=== PATIENT | male | born 2005 | race Caucasian/White ===

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

== ENCOUNTER 2024-03-10 22:31 | Emergency (ER) | payer SELFPAY ==
--- NOTE | 2024-03-10 22:50 | ED.GENADUL_ITS ---
Discharge Plan Disposition Patient Disposition: Home Condition: Good Discharge Details Clinical Impression: Viral respiratory illness ED Provider: Sarah Lewis Home Meds and New Rx's Prescriptions: Continued trazodone 50 mg tablet 50 mg PO DAILY lamotrigine 100 mg Tablet 50 mg PO BID dexmethylphenidate [Focalin XR] 15 mg Capsule,Er Biphasic 50-50 15 mg PO QAM Discharge Instructions Additional Instructions: Your symptoms today are most consistent with a viral illness. Please stay well hydrated, drinking plenty of fluids throughout the day. You may use ibuprofen 600 mg every 8 hours and tylenol 650 mg every 8 hours as needed for fever /chills or body aches. Get plenty of rest. Practice good handwashing and wear a mask in public if you are coughing to avoid spreading illness to others. Return to emergency care if you develop difficulty breathing, chest pains, worsening of cough or fever after initial improvement, or if you are very worried and need to be rechecked again immediately. HPI General Date/Time Provider Initiated Documentation: 03/10/24 22:32 . HPI Narrative: Asim is a 18year old male who presents to the emergency department today for tom luation of fever with viral symptoms. He reports symptoms started 3 or 4 days ago with headache, cough, congestion, sore throat. Today developed headache and fatigue. Admits to multiple ill contacts, son today was sick and diagnosed with flu. Reports fever up to 103 temporal. Denies chest pain, shortness of breath, nausea, vomiting other than posttussive emesis x 1, abdominal pain, change in b owel or bladder function. Says he occasionally gets chest discomfort that resolves spontaneously, no recent changes or episodes of this associated with recent illness. Past medical history is significant for ADHD. He admits to smoking 1 pack/day cigarettes plus marijuana. Denies drug use. No history of asthma, heart disease, immunocompromise. Denies family history of sudden cardiac or connective tissue disorders. Does not have PCP. Physical exam reassuring. Asim is alert and oriented, no acute distress. Easy work of breathing, occasional dry cough during exam. Easy work of breathing, lung sounds clear bilaterally. Normal heart sounds. MMM. Normal oropharynx, no erythema, exudate, or tonsillar hypertrophy. TMs pearly jones, translucent. No submandibular or cervical lymphadenopathy. History and presentation c/w viral illness. No red flag concerning for pneumonia or other bacterial etiology. Pt does not meet SIRS criteria- he is currently afebrile (did not take any meds at home); no tachycardia, tachypnea, or hypoxia. I independently interpreted the following tests: COVID and flu- FLU A Positive. While in the emergency department, Asim received tylenol for headache. As patient is outside window of treatment with Tamiflu for flu A and has no significant comorbidities, recommend symptomatic management at home Reviewed discharge instructions with patient, including symptomatic management and red flags indicating need for return to emergency care Related Data Home Medications ?Medication ?Instructions ?Recorded ?Confirmed dexmethylphenidate 15 mg 15 mg PO QAM 01/12/18 01/12/18 capsule,extended release -29 (Focalin XR) lamotrigine 100 mg tablet 50 mg PO BID 01/12/18 02/15/18 trazodone 50 mg tablet 50 mg PO DAILY 02/15/18 02/15/18 Allergies Allergy/AdvReac Type Severity Reaction Status Date / Time No Known Allergies Allergy Unverified 02/15/18 14:25 General KIRAN: 5 Review of Systems Narrative: see HPI Exam Const General: cooperative, comfortable, no acute distress and well developed Nutritional Appearance: average body habitus Orientation: alert and oriented x3 Neck Neck: normal visual inspection, full ROM and no lymphadenopathy Chest Chest: normal palpation of entire chest wall, no crepitus and no tenderness Resp Effort & Inspection: normal respiratory effort and able to speak in complete sentences Auscultation: clear to auscultation bilaterally Cardio Jugular venous pressure: no JVD Rate: regular rate Rhythm: regular rhythm Skin General skin exam: no rashes or lesions noted Neuro General: patient alert, patient oriented x3, gait normal, tone normal, moves all extremities and no meningeal signs Cognition: normal cognition Speech: speech normal Medical Decision Making Quality:SDOH Health Related Social Needs: No Data to Display PFSH All Active Problems (Updated 03/10/24 @ 22:45 by Sarah Umana) Viral respiratory illness (Acute) Fracture of fifth metacarpal bone of right hand (Acute) Oppositional defiant disorder (Acute 02/03/12) BMI (body mass index), pediatric, 5% to less than 85% for age (Acute 06/22/16) Attention deficit hyperactivity disorder, combined type (Acute 11/14/12) Surgical History ORAL SURGERY Appendectomy Family History GRANDPARENT Substance abuse ALCOHOL Diabetes Essential hypertension Mental disorder DEPRESSION/ANXIETY Social History Smoking/Tobacco Use Status: Current every day Tobacco Type: cigarettes Smoking risk assessment performed?: Yes Alcohol Intake: current Alcohol Intake frequency: holidays/special occasions only Alcohol type: beer Drug use: Never Substance use type: marijuana Do you feel safe in your relationship?: Yes
[2024-03-10 22:54] VITALS: BP 136/67; PULSE 87; RESP 16; TEMP 37.1; O2SAT 99
[2024-03-10] MEDS: Acetaminophen 325 MG TAB 650 MG PO (23:07)
== END 2024-03-10 23:23 | disposition home or self-care (01) ==
LOC: ER 23:32
PROVIDERS: Emergency Provider Nurse Practitioner Family
DX: R50.9 Fever, unspecified (principal)
CPT/HCPCS: 99283

== ENCOUNTER 2024-05-04 21:28 | Emergency (ER) | payer SELFPAY ==
[2024-05-04 21:31] VITALS: BP 146/85; PULSE 76; RESP 20; TEMP 36.6; O2SAT 100
--- NOTE | 2024-05-04 21:36 | DI.RAD_ITS ---
Exam(s) XR HAND LT COMPLETE EXAM: XR HAND LT COMPLETE CLINICAL HISTORY: L hand pain. TECHNIQUE: 2D digital imaging was performed. Three views. COMPARISON: CR XR hand RT complete from 02/15/2018 FINDINGS: BONES: No acute fracture is present. No bony destructive lesion is seen. JOINTS: No dislocation present. SOFT TISSUE: Posterior swelling. No foreign body. IMPRESSION: Soft tissue swelling. DATA REPOSITORY: RADIATION DOSE DELIVERED:
--- NOTE | 2024-05-04 21:55 | W.ED.GENAD ---
Discharge Plan Disposition Patient Disposition: Home Condition: Good Discharge Details Clinical Impression: Contusion of hand, left Primary Care Provider: [facility] ED Provider: Vern Do and New Rx's Prescriptions: No Action trazodone 50 mg tablet 50 mg PO DAILY lamotrigine 100 mg Tablet 50 mg PO BID dexmethylphenidate [Focalin XR] 15 mg Capsule,Er Biphasic 50-50 15 mg PO QAM Discharge Instructions Instructions: Minor Contusion ED Additional Instructions: You were seen for left hand pain after punching objects out of anger. X-rays are negative for fracture. You should use ice on and off over the weekend, keep your hand elevated and take ibuprofen or acetaminophen as needed. Follow up with PCP as needed. Return to ED for worsening pain, swelling, other concerns. HPI General Mode of arrival: ambulatory. Date/Time Provider Initiated Documentation: 05/04/24 21:35. Limitations to Documentation: no limitations. Information obtained by: patient and RN notes reviewed. HPI Narrative: Patient presents to the ED with left hand pain. Patient was angry and punched a tree and a guard rail. He is right-hand dominant. He has left hand pain and swelling. Denies injury elsewhere. Related Data Home Medications ?Medication ?Instructions ?Recorded ?Confirmed dexmethylphenidate 15 mg 15 mg PO QAM 01/12/18 05/04/24 capsule,extended release [id number] (Focalin XR) lamotrigine 100 mg tablet 50 mg PO BID 01/12/18 05/04/24 trazodone 50 mg tablet 50 mg PO DAILY 02/15/18 05/04/24 Allergies Allergy/AdvReac Type Severity Reaction Status Date / Time No Known Allergies Allergy Verified 05/04/24 21:35 General Stated Complaint: Orthopedic KIRAN: 4 Exam Narrative Exam Narrative: Const: WDWN male in NAD. VS per triage. HEENT: NC/AT. Normal facial exam. Neck: Supple. Trachea midline. Lungs: Normal respiratory effort. Neuro: A+O x 3. Normal speech, mentation. Ext: Left hand with some swelling and bruising over the 3rd metacarpal head. Good ROM, sensation, cap refill. Course Vital Signs Vital signs: Vital Signs Temperature 97.8 F 05/04/24 21:31 Pulse 76 05/04/24 21:31 Respiratory Rate 20 05/04/24 21:31 Blood Pressure 146/85 H 03/21/25 21:31 Pulse Oximetry 100 05/04/24 21:31 Temperature 97.8 F 05/04/24 21:31 Temperature Source Temporal Artery Scan 05/04/24 21:31 Pulse 76 05/04/24 21:31 Respiratory Rate 20 05/04/24 21:31 Blood Pressure 146/85 H 05/04/24 21:31 Blood Pressure Position Sitting 05/04/24 21:31 Pulse Oximetry 100 05/04/24 21:31 Oxygen Delivery Method Room Air 05/04/24 21:31 Oxygen Flow Rate 0 05/04/24 21:31 Pain Level 6 05/04/24 21:40 Medical Decision Making Patient presenting to the ED with left hand pain status post punching objects. Some pain and swelling present but good ROM. X-ray of left hand obtained and negative for acute fracture/dislocation per my read. Patient to use ice on and off, elevate hand and take ibuprofen as need. Follow up with PCP as needed. Return precautions provided. Imaging Data Radiologic Study: Attestation: I personally reviewed and interpreted this imaging study as follows: Imaging: X-Ray My impression: see MDM [facility] All Active Problems Contusion of hand, left (Acute) Medical History Attention deficit hyperactivity disorder, combined type (11/14/12) Oppositional defiant disorder (02/03/12) Surgical History ORAL SURGERY Appendectomy Family History GRANDPARENT Substance abuse ALCOHOL Diabetes Essential hypertension Mental disorder DEPRESSION/ANXIETY Social History Smoking/Tobacco Use Status: Current every day Tobacco Type: cigarettes Smoking risk assessment performed?: Yes Alcohol Intake: current Alcohol Intake frequency: holidays/special occasions only Alcohol type: beer Drug use: Never Substance use type: marijuana Do you feel safe in your relationship?: Yes PAWSS Have you Been Recently Intoxicated or Drunk Within the Last 30 days?: Yes Have you Ever Experienced Previous Episodes of Alcohol Withdrawal?: No Have you ever Experienced Withdrawal Seizures?: No Have you ever Experienced Delirium Tremens(DT)s?: No Have you ever undergone Alcohol Rehabilitation Treatment (i.e, inpt ot outpatient treatment programs)?: No Have you ever Experienced Blackouts?: No Have you ever Combined Alcohol with other Downers within the last 90 days?: No Have you ever Combined Alcohol with any other Substance of Abuse during the last 90 days?: No Positive Blood Alcohol level on Presentation? [PCS.BAL]: No Evidence of Increased Autonomic Activity (i.e. HR>120, tremor, sweating, agitation, nausea)?: No Result: 1
--- NOTE | 2024-05-04 22:48 | DI.VRAD_ITS ---
PROCEDURE INFORMATION: Exam: XR Left Hand Exam date and time: 05/04/2024 21:46 Age: 19 years old Clinical indication: Pain; Hand; Left TECHNIQUE: Imaging protocol: Radiologic exam of the left hand. Views: 3 or more views. COMPARISON: No relevant prior studies available. FINDINGS: Bones/joints: No acute fracture or subluxation. Soft tissues: Soft tissue swelling dorsally. IMPRESSION: No acute bony pathology. Dictated and Authenticated by: Dhara Lux MD. Orderin Barbara Cantrell MD
== END 2024-05-04 22:08 | disposition home or self-care (01) ==
PROVIDERS: Emergency Provider Emergency Medicine
DX: S60.221A Contusion of right hand, initial encounter (principal); F17.210 Nicotine dependence, cigarettes, uncomplicated; W22.09XA Striking against other stationary object, initial encounter; Y93.89 Activity, other specified
CPT/HCPCS: 99283; 73130

== ENCOUNTER 2024-05-30 20:09 | Emergency (ER) | payer SELFPAY ==
[2024-05-30 20:13] VITALS: BP 130/79; PULSE 81; RESP 16; TEMP 36.6; O2SAT 99
[2024-05-30 20:17] VITALS: RESP 16
--- NOTE | 2024-05-30 20:20 | ED.GENADUL_ITS ---
Discharge Plan Disposition Patient Disposition: Home Condition: Stable Discharge Details Clinical Impression: Palpitations Primary Care Provider: Guillermina,Local ED Provider: Óscar Jimenez Home Meds and New Rx's Prescriptions: No Action No Known Home Meds Discharge Instructions Instructions: Palpitations ED Additional Instructions: You were seen in the emergency department for some on new sensations after smoking weed, you state the person you shared this marijuana with may have laced it with something else, we did perform a urine drug test you can check results of this tomorrow if you think there was another substance in there perhaps it is 1 that we can test for here at this hospital. You have been having palpitations for quite some time, this may be due to anxiety, this may be a reaction to marijuana, you had some vomiting which is also an intermittent normal reaction be seen in the general population that engages in marijuana use. Your EKG shows no signs of any heart problems please follow-up with your primary care provider for in-depth recommendations on palpitations, please return to the emergency department for any chest pain especially with exertion, shortness of breath, feeling like you are going to pass out or any other emergent concerns. Discharge Data Discharge Date/Time-TO BE ENTERED AT DEPARTURE: 05/30/24 21:21 HPI General Date/Time Provider Initiated Documentation: 05/30/24 20:13 . HPI Narrative: 19 year-old male presents to ED today by POV/ambulating with a chief complaint of smoked marijuana this evening, and his mouth went numb briefly and he vomited, had some mild chest discomfort and sweats with coughing. Quality described as just felt weird, no radiation to continued chest pain, near syncope, persistent vomiting, shortness of breath. Severity is described as moderate. Palliating factors include nothing specific attempted. Provoking factors include nothing specific. Patient not anticoagulated. Related Data Home Medications ?Medication ?Instructions ?Recorded ?Confirmed Unknown [No Known Home Meds] 05/30/24 05/30/24 Allergies Allergy/AdvReac Type Severity Reaction Status Date / Time No Known Allergies Allergy Verified 05/30/24 20:22 General Stated Complaint: GenMedical KIRAN: 4 Review of Systems All systems reviewed & are unremarkable except as noted in HPI and below Exam Narrative Exam Narrative: GENERAL APPEARANCE: Well-nourished, non-toxic, awake and alert, atraumatic, no acute distress. SKIN: Warm, pink, dry, intact, without rashes/lesions/ulcerations. HEAD: Normocephalic, atraumatic, normal hair distribution for gender/age. EYES: Normal conjunctiva, no exudates on lids/lashes. ENT: Nares patent, no circumoral cyanosis, no facial swelling NECK: Supple, trachea midline, painless cervical ROM. LUNGS/CHEST: Lungs CTA bilaterally, non-labored respirations, normal A/P diameter, symmetrical expansion, no chest wall deformity HEART (CV/PV): Regular rate and rhythm without murmur, no peripheral edema, no JVD. ABDOMEN: Soft, non-distended, no guarding. MSK: Normal ROM, no swelling/deformity to bilateral UEs or LEs, moving all extremities without weakness, no cyanosis, spine midline without tenderness, normal curvature. NEURO: Mental Status AAOx4 - alert to person, place, time, events No facial droop, no forehead involvement. Motor: No focal weakness - strength 5/5 in bilateral UEs and LEs, proximal and distal, symmetric. Sensory: sensation intact to light touch globally. Gait normal: patient ambulated without ataxia into ED room. PSYCH: euthymic, cooperative, pleasant, appropriate speech Course Vital Signs Vital signs: Vital Signs Temperature 36.6 C 05/30/24 20:13 Pulse 81 05/30/24 20:13 Respiratory Rate 16 05/30/24 20:13 Blood Pressure 130/79 05/30/24 20:13 Pulse Oximetry 99 05/30/24 20:13 Temperature 36.6 C 05/30/24 20:13 Temperature Source Oral 05/30/24 20:13 Pulse 81 05/30/24 20:13 Respiratory Rate 16 05/30/24 20:13 Blood Pressure 130/79 05/30/24 20:13 Pulse Oximetry 99 05/30/24 20:13 Oxygen Delivery Method Room Air 05/30/24 20:13 Oxygen Flow Rate 0 05/30/24 20:13 Pain Level 3 05/30/24 20:13 Comment chest 05/30/24 20:13 Medical Decision Making This dictation utilizes [id number] dictation software and may contain unedited grammatical errors. 19 year-old male presents to ED today by POV/ambulating with a chief complaint of smoked marijuana this evening, and his mouth went numb briefly and he vomited, had some mild chest discomfort and sweats with coughing. Quality described as just felt weird, no radiation to continued chest pain, near syncope, persistent vomiting, shortness of breath. Severity is described as moderate. Palliating factors include nothing specific attempted. Provoking factors include nothing specific. Patients' medical history: noncontributory. Family and social history: daily marijuana use. Pertinent exam findings / vital signs include benign cardiopulmonary exam, benign abdomen, stable vitals. Differential / pathologies of concern include vasovagal reaction, ingestion of smoke into stomach, side effect of psychotropic drug. Diagnostic studies of: -EKG, UDS. UDS pos for THC -EKG shows NSR 75bpm, no ischemic changes, no T wave abn, normal intervals Interventions of: -None. ED Course/Assessment/Plan: 19-year-old male had a brief coughing fit with vomiting and sweats and palpitations after marijuana use, he wondered if it was laced with something else, UDS shows only positive for THC, performed EKG which shows normal sinus rhythm counseled the patient that he is likely having to stay bad reaction to marijuana, question cannabis hyperemesis, counseled to go home and perform normal p.o. intake, advised to stop marijuana use should he continue to have these reactions to the drug. Findings not consistent with coronary artery disease, loss of consciousness, persistent vomiting, ingestion of other illicit substance. Disposition of palpitations. Patient verbalized understanding of the plan and return to ED criteria and engaged in shared decision making. Medical Records Medical records reviewed: Yes I reviewed the patient's medical records. Lab Data Lab results reviewed: Yes I reviewed the patient's lab results. Labs: Laboratory Tests Range/Units 05/30/24 21:06 Urine Opiates Screen (Negative) Negative Urine Methadone Screen (Negative) Negative Ur Barbiturates Screen (Negative) Negative Ur Tricyclics Screen (Negative) Negative Ur Amphetamines Screen (Negative) Negative U Benzodiazepines Scrn (Negative) Negative Urine Cocaine Screen (Negative) Negative Ur THC Screen (Negative) Positive A Quality:SDOH Health Related Social Needs: No Data to Display PFSH All Active Problems (Updated 06/04/24 @ 00:03 by SHERRY HARRISON) Palpitations (Acute) Medical History Attention deficit hyperactivity disorder, combined type (11/14/12) Oppositional defiant disorder (02/03/12) Surgical History ORAL SURGERY Appendectomy Family History GRANDPARENT Substance abuse ALCOHOL Diabetes Essential hypertension Mental disorder DEPRESSION/ANXIETY Social History Smoking/Tobacco Use Status: Current every day Tobacco Type: cigarettes Smoking risk assessment performed?: Yes Alcohol Intake: current Alcohol Intake frequency: holidays/special occasions only Alcohol type: beer Drug use: Never Substance use type: marijuana Do you feel safe in your relationship?: Yes
--- NOTE | 2024-05-30 20:30 | RT.EKG_ITS ---
APPROVED REPORT Exam: Resting ECG Reason for Exam: baseline/screening Patient Location: E HR:75 bpm ECG Measurements Heart Rate 75 AXIS SD 144 P 66 QRSd 98 QRS 87 QT 373 T 33 QTc 417 Conclusion Sinus rhythm, rate 75 No interval abnormalities No STEMI No priors available for comparison
[2024-05-30 21:48] LABS: *AMPHETAMINES SCREEN URINE Negative (Negative); *BARBITURATES SCREEN URINE Negative (Negative); *BENZODIAZEPINES SCREEN URINE Negative (Negative); Cannabinoids THC Positive (Negative); Cocaine Screen,Urine Negative (Negative); METHADONE URINE SCREEN Negative (Negative); OPIATES URINE SCREEN Negative (Negative)
[2024-05-30 21:49] LABS: Tricyclic Antidepressants Negative (Negative)
== END 2024-05-30 21:21 | disposition home or self-care (01) ==
LOC: ER 21:25
PROVIDERS: Emergency Provider Physician Assistant
DX: R00.2 Palpitations (principal); F12.90 Cannabis use, unspecified, uncomplicated
CPT/HCPCS: 99283; 99284; 80307; 93005; 93010